=== PATIENT | female | born 1975 | race American Indian/Alaskan Native ===

== ENCOUNTER 2022-05-21 01:25 | Emergency (ER) | payer MEDICAID ==
[2022-05-21] MEDS ORDERED: SODIUM CHLORIDE 0.9% 1000 ML 1,000 ML ONE (02:23)
[2022-05-21] MEDS ORDERED: NALOXONE 2 MG/2 ML INJ ONE (02:25)
[2022-05-21] MEDS ORDERED: NALOXONE 2 MG/2 ML INJ IV ONE (02:32)
[2022-05-21] MEDS ORDERED: levETIRAcetam 1000 MG/NS 0.75% 1,000 MG/100 ML BAG IV ONE (02:34)
[2022-05-21] MEDS ORDERED: SODIUM CHLORIDE 0.9% 1000 ML 1,000 ML IV ONE ×4 (02:34→06:36)
--- NOTE | 2022-05-21 02:40 | Emergency Department Report ---
ED Seizure HPI - General Chief Complaint: Seizure Stated Complaint: AMS/SEIZURE Time Seen by Provider: 05/21/22 02:32 Source: family, EMS Mode of arrival: Stretcher Limitations: No Limitations - History of Present Illness Initial Comments: 46 yo F with the history of illicit drug use brought in by EMS with likely OD on unknown illicit drug tonight. According to daughter patient had generalized body shakiness without history of seizure. No fever or chills reported. Pt is postictal on presentation but maintaining her oxygen level. No other modifying o r associated factors reported. - Related Data Allergies Allergy/AdvReac Type Severity Reaction Status Date / Time No Known Allergies Allergy Verified 05/21/22 03:41 ED Review of Systems ROS: Stated complaint: AMS/SEIZURE Other details as noted in HPI Comment: All other systems reviewed and negative Neurological: other (seizure ) ED Past Medical Hx - Past Medical History Previous Medical History?: Yes Hx Hypertension: Yes Hx Kidney Stones: Yes - Surgical History Past Surgical History?: No - Social History Smoking Status: Never Smoker Substance Use Type: Marijuana ED Physical Exam - General Limitations: No Limitations General appearance: alert, in no apparent distress - Head Head exam: Present: normal inspection - Eye Pupils: Present: other (pinpoint pupil and fixed ) - ENT ENT exam: Present: normal exam, normal orophraynx, mucous membranes moist - Neck Neck exam: Present: normal inspection, full ROM. Absent: tenderness - Respiratory Respiratory exam: Present: normal lung sounds bilaterally. Absent: respiratory distress, accessory muscle use - Cardiovascular Cardiovascular Exam: Present: regular rate, normal rhythm, normal heart sounds - GI/Abdominal GI/Abdominal exam: Present: soft, normal bowel sounds. Absent: distended, tenderness - Extremities Exam Extremities exam: Present: normal inspection, full ROM, normal capillary refill. Absent: tenderness, pedal edema - Back Exam Back exam: Present: normal inspection. Absent: tenderness ED Course Vital Signs 05/21/22 05/21/22 05/21/22 01:26 02:13 02:15 Temperature 97.7 F Pulse Rate 108 H 116 H Respiratory 18 28 H 20 Rate Blood Pressure 90/53 82/39 O2 Sat by Pulse 100 Oximetry 05/21/22 05/21/22 05/21/22 02:31 02:45 03:01 Temperature Pulse Rate 115 H 99 H 107 H Respiratory 26 H 27 H 23 Rate Blood Pressure 82/39 97/56 97/56 O2 Sat by Pulse 97 98 99 Oximetry 05/21/22 05/21/22 05/21/22 03:15 03:31 03:45 Temperature Pulse Rate 112 H 97 H 94 H Respiratory 13 24 24 Rate Blood Pressure 97/56 130/83 130/83 O2 Sat by Pulse 97 94 Oximetry 05/21/22 05/21/22 05/21/22 04:01 04:15 04:31 Temperature Pulse Rate 94 H 95 H 89 Respiratory 23 22 26 H Rate Blood Pressure 112/66 112/66 137/102 O2 Sat by Pulse 97 98 Oximetry 05/21/22 05/21/22 05/21/22 04:45 05:01 05:15 Temperature Pulse Rate 84 89 85 Respiratory 24 25 H 20 Rate Blood Pressure 140/93 140/93 131/87 O2 Sat by Pulse 97 Oximetry 05/21/22 05:31 Temperature Pulse Rate 86 Respiratory 23 Rate Blood Pressure 131/87 O2 Sat by Pulse 99 Oximetry - Reevaluation(s) Reevaluation #1: 05/21/22 05:[address] Brennan while waiting for CT head and response to treatment -- ED Medical Decision Making - Lab Data Result diagrams: 05/21/22 03:51 05/21/22 03:51 - Medical Decision Making brought in by EMS with likely illicit drug OD with noted pinpoint pupil -- and likely postictal --here with possible seizure -- but considering this patients age differentials such as stroke, myocardial infarction, hepatic encephalopathy, systemic infection with sepsis cannot be ruled out. In order to rule out those above we will go ahead and order CT scan of the brain, CBC, CMP, urinalysis, for any infectious process or electrolyte abnormality and thyroid panel for any hypo or hyper thyroidism. In the meantime we will go ahead and give Keppra 1 g IV piggyback x1 for stabilization and ivf ns 1L bolus to help the hypotension-- Narcan given for the pinpoint pupil that could have been as a result of opoiod overdose -- will continue to monitor patient reaction to the above treatment. Critical care attestation.: If time is entered above; I have spent that time in minutes in the direct care of this critically ill patient, excluding procedure time. ED Disposition Clinical Impression: Seizure Disposition: 30 STILL A PATIENT Is pt being admited?: No Does the pt Need Aspirin: No Condition: Stable
[2022-05-21 04:35] LABS: Mean Corpuscular HGB Conc 33 % (30-34); Mean Corpuscular Volume 93 fl (79-97); Platelet Count 323 K/mm3 (140-440); Red Blood Count 4.19 M/mm3 (3.65-5.03); Red Cell Distribution Width 14.1 % (13.2-15.2)
[2022-05-21 04:56] LABS: Alanine Aminotransferase 12 units/L (7-56); Albumin 4.3 g/dL (3.9-5); BUN/Creatinine Ratio 10; Blood Urea Nitrogen 10 mg/dL (7-17); Calcium 8.8 mg/dL (8.4-10.2); Hemolysis Index 33
[2022-05-21 05:31] LABS: Anisocytosis 1+; Basophils % (Manual) 0 % (0.0-1.8); Eosinophils % (Manual) 0 % (0.0-4.3); Platelet Estimate Consistent w Auto; Total Cells Counted 100
[2022-05-21 08:34] VITALS: BP 113/66
[2022-05-21 09:02] LABS: Cocaine Screen,Urine Negative; Methadone Screen,Urine Negative; Opiate Screen,Urine Negative
[2022-05-21 09:06] LABS: Mucus,Urine FEW /HPF; RBC,Urine < 1.0 /HPF (0.0-6.0); WBC,Urine < 1.0 /HPF (0.0-6.0)
[2022-05-21 09:18] LABS: Amphetamine Screen,Urine Positive; Benzodiazepines Screen,Urine Positive; Cannabinoid Screen,Urine Positive
--- NOTE | 2022-05-21 09:23 | Cat Scan Report ---
CT HEAD WITHOUT CONTRAST INDICATION / CLINICAL INFORMATION: Seizure. TECHNIQUE: Axial imaging performed from the skull apex through the skull base without the use of cont rast. Sagittal and coronal reformatted images. All CT scans at this location are performed using CT dose reduction for ALARA by means of automated exposure control. COMPARISON: None available. FINDINGS: CEREBRAL PARENCHYMA: No significant abnormality. No acute territorial infarct. HEMORRHAGE: None. EXTRA-AXIAL SPACES: Normal in size and morphology for the patient's age. VENTRICULAR SYSTEM: Normal in size and morphology for the patient's age. MIDLINE SHIFT OR HERNIATION: None. CEREBELLUM / BRAINSTEM: No significant abnormality. CALVARIUM: No significant abnormality. ORBITS: Normal as visualized. PARANASAL SINUSES / MASTOID AIR CELLS: Normal as visualized. SOFT TISSUES of HEAD: No significant abnormality. ADDITIONAL FINDINGS: None. IMPRESSION: No acute intracranial abnormality. Signer Name: Marvel Calero Jr, MD Signed: 05/21/2022 9:19 AM Workstation Name: [id number]
[2022-05-21 09:31] LABS: Color,Urine Straw (Yellow)
[2022-05-21 09:32] LABS: Bilirubin,Urine Negative (Negative); Blood,Urine Negative (Negative); Urobilinogen,Urine < 2.0 mg/dL (<2.0)
--- NOTE | 2022-05-21 12:05 | Event Note ---
Date: 05/21/22 Patient signed out to me by Dr. Mejia at 6:27 AM pending resulting of the patient's CAT scan. CT scan results reviewed. Urine drug screen positive for marijuana, amphetamines, and benzodiazepines. Assessed and reassessed by me multiple times throughout her continued emergency department course after she was signed out to me by the outgoing provider. She had no evidence of persistent or worsening altered sensorium and she had no seizure or seizure-like activity. Mentation significantly improved. Patient deemed stable for discharge to home. Advised to abstain from driving swimming or operating any other heavy machinery till she is cleared by her primary care doctor at follow-up. Patient verbalized understanding. Patient discharged to home in the care of her daughter
--- NOTE | 2022-05-24 18:01 | Electrocardiograph Report ---
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
== END 2022-05-21 12:06 | disposition home or self-care (01) ==
LOC: ED 01:25
DX: R56.9 Unspecified convulsions (principal); I10 Essential (primary) hypertension; F12.90 Cannabis use, unspecified, uncomplicated; Z87.442 Personal history of urinary calculi; Z79.899 Other long term (current) drug therapy
CPT/HCPCS: 36415; 70450; 80053; 80307; 81001; 85007; 85025; 93005; 96361; 96374; 96375; 99284; J1953; J2310; J7030; 80320; G0480